=== PATIENT | female | born 1995 ===

== ENCOUNTER 2019-02-24 16:32 | Emergency (ER) | payer SELFPAY ==
--- NOTE | 2019-02-24 19:36 | UC ---
Skin Complaint HPI - HPI Summary HPI Summary: A DAY AND A HALF AGO PATIENT DEVELOPED A DIFFUSE VESICULAR PAINFUL RASH OVER HER FACE, SCALP, TRUNK AND UPPER AND LOWER EXTREMITIES. RETURNED 3 DAYS AGO FROM [place] WHERE SHE WAS STAYING IN A [facility]. DENIES PRURITUS. NO FEVER BUT DOES HAVE OVERALL FATIGUE AND MALAISE. - History of Current Complaint Chief Complaint: UCRash Time Seen by Provider: 02/24/19 18:42 Stated Complaint: RASH Hx Obtained From: Patient, Family/Metal Stamper - MALE FRIEND Hx Last Menstrual Period: [id number] Onset/Duration: Sudden Onset, Lasting Days, Still Present Timing: Constant Onset Severity: Moderate Current Severity: Moderate Pain Intensity: 4 Pain Scale Used: 0-10 Numeric Location: Diffuse Character: Pain, Redness Aggravating Factor(s): Touch Alleviating Factor(s): Nothing Associated Signs & Symptoms: Positive: Rash, Tenderness - Allergy/Home Medications Allergies/Adverse Reactions: Allergies Allergy/AdvReac Type Severity Reaction Status Date / Time No Known Allergies Allergy Verified 02/24/19 16:58 Home Medications: Home Medications Acetaminophen TAB* [Tylenol TAB*] 650 mg PO Q6H PRN 02/24/19 [History Confirmed 02/24/19] Fexofenadine (NF) [Serene (NF)] 60 mg PO DAILY 02/24/19 [History Confirmed 06/05] PMH/Surg Hx/FS Hx/Imm Hx Previously Healthy: Yes - Surgical History Surgical History: None - Family History Known Family History: Positive: Non-Contributory - Social History Alcohol Use: Rare Substance Use Type: None Smoking Status (MU): Never Smoked Tobacco Review of Systems All Other Systems Reviewed And Are Negative: Yes Constitutional: Positive: Fatigue Skin: Positive: Rash Respiratory: Positive: Negative Cardiovascular: Positive: Negative Gastrointestinal: Positive: Negative Physical Exam Triage Information Reviewed: Yes Appearance: No Pain Distress, Well-Nourished, Ill-Appearing - SEEMS TIRED Vital Signs: Initial Vital Signs Temp 99.4 F 02/24/19 16:49 Pulse 106 02/24/19 16:49 Resp 16 02/24/19 16:49 BP 111/71 02/24/19 16:49 Pulse Ox 99 02/24/19 16:49 Vital Signs Reviewed: Yes Eyes: Positive: Conjunctiva Clear ENT: Positive: Hearing grossly normal, Other - 2MM WHITE ULCERATION SOFT PALATE Neck: Positive: Supple Respiratory: Positive: No respiratory distress, No accessory muscle use Cardiovascular: Positive: Pulses Normal Abdomen Description: Positive: Soft Musculoskeletal: Positive: No Edema Neurological: Positive: Alert Psychological: Positive: Age Appropriate Behavior Skin: Positive: Rashes - SCATTERED VESICULAR, ERYTHEMATOUS LESIONS OVER FACE, SCALP, TRUNK, UPPER AND LOWER EXTREMITIES Course/Dx - Course Course Of Treatment: PATIENT RETURNED FROM [facility] 3 DAYS AGO WHERE SHE WAS STAYING IN A HOSTEL. A DAY AND A HALF LATER SHE DEVELOPED DIFFUSE PAINFUL VESICULAR, ERYTHEMATOUS LESIONS SCATTERED OVER HER BODY INCLUDING FACE, TRUNK AND EXTREMITIES. SHE HAS OVERALL MALAISE AND FEELS FATIGUED. NO FEVER. SHE REQUESTED A CBC WHICH WAS DRAWN. SHE DECLINES VIRAL CULTURE OF THE FLUID FROM THE LESIONS TODAY. APPEARANCE OF SOME OF THE LESIONS IS CONSISTENT WITH MOLLUSCUM. CONDYLOX PRESCRIBED. ADVISED HER TO USE IT ON A SMALL AREA TO START WITH TO SEE IF IT IMPROVES. STRONGLY ENCOURAGED HER TO CALL DERMATOLOGY TOMORROW MORNING TO SCHEDULE FOLLOW-UP APPOINTMENT FOR THIS WEEK OR EARLY NEXT. SHE STATES IF IT DOES NOT IMPROVE IN 2 DAYS SHE WILL GO TO [place] OR [facility] FOR EVALUATION. - Diagnoses Provider Diagnosis: Vesicular rash Discharge - Sign-Out/Discharge Documenting (check all that apply): Patient Departure All imaging exams completed and their final reports reviewed: No Studies - Discharge Plan Condition: Stable Disposition: HOME Prescriptions: Podofilox 0.5 % EX Q12H #1 bottle Patient Education Materials: Molluscum Contagiosum (ED) Referrals: No Primary Care Phys,NOPCP [Primary Care Provider] - Additional Instructions: UNCLEAR ETIOLOGY OF YOUR DIFFUSE RASH TODAY. SUSPECT MOLLUSCUM CONTAGIOSUM WHICH IS CAUSED BY A POX VIRUS. TRY TOPICAL PODOFILOX TWICE DAILY FOR 3 DAYS THEN OFF FOR 4 DAYS. DO THIS FOR NO MORE THAN 4 WEEKS. YOU MAY HAVE ALSO BEEN EXPOSED TO [employer] OR SOME OTHER OFFENDING AGENT AT THE HOSTEL IN [facility]. I RECOMMEND YOU CALL A [employer]ING MACHINE ADJUSTER TOMORROW TO SCHEDULE A FOLLOW-UP APPOINTMENT FOR THIS WEEK OR EARLY NEXT. TRY NOT TO PICK AT THE LESIONS. PRACTICE GOOD HAND HYGIENE. BLOOD COUNT DRAWN TODAY. WE WILL CALL YOU WITH ANY ABNORMAL RESULTS. DERMATOLOGY IN [place] ON [address] VITOR SCHNEIDER [facility], [facility] [address] [facility] [address]; [address] [place] [address] Dr. Sabra Shin Address: [address] [place] [address] DR. MITCHELL LEON [facility] [address] [facility], [place] [address] [address] [place] Dr[address] Dannielle Hnedrickson DERMATOLOGY IN [place] [address] MITCHELL LEON [phone] - Billing Disposition and Condition Condition: STABLE Disposition: Home
[2019-02-25 11:38] LABS: Hematocrit 38 % (35-47); Hemoglobin 12.3 g/dL (12.0-16.0); Mean Corpuscular HGB Conc 33 g/dL (31-36); Mean Corpuscular Hemoglobin 28 pg (27-31); Mean Corpuscular Volume 84 fL (80-97); Mean Platelet Volume 7.4 fL (7.4-10.4); Platelet Count 354 10^3/uL (150-450); Red Blood Count 4.47 10^6 /uL (3.70-4.87); Red Cell Distribution Width 15 % (10-15); White Blood Count 5.9 10^3/uL (3.5-10.8)
[2019-02-25 12:03] LABS: ABS Basophils 0.1 10^3/ul (0-0.2); ABS Lymphocytes 2.4 10^3/ul (1.0-4.8); ABS Monocytes 0.7 10^3/ul (0-0.8); ABS Neutrophils 2.7 10^3/ul (1.5-7.7); Eosinophil % 0.3 %; Lymphocyte % 41.2 %; Nucleated Red Blood Cells % 0.2
== END 2019-02-24 19:35 | disposition home or self-care (01) ==
LOC: UCEAST 16:32
DX: R23.8 Other skin changes (principal)
CPT/HCPCS: 36415; 85025; 85060; 99202; G0463